=== PATIENT | female | born 1990 | race Caucasian/White ===

== ENCOUNTER 2018-05-21 18:05 | Emergency (ER) | payer OTHER ==
[2018-05-21] MEDS ORDERED: KETOROLAC 30 MG/ML INJ ONE (19:01)
[2018-05-21] MEDS ORDERED: HYDROCODONE/APAP 5/325 MG TAB ONE (19:01)
--- NOTE | 2018-05-21 19:40 | ER ---
Nurse's Notes [facility] Name: Liya Gutierrez Age: 28 yrs Sex: Female : 1990 Arrival Date: 05/21/2018 Time: 18:11 Bed 20 Private MD: None, None Diagnosis: Jaw pain-Left Presentation: 05/21 18:21 Presenting complaint: Patient states: Left lower jaw pain for 3 days. Transition of care: patient was not received from another setting of care. Onset of symptoms was May 18, 2018. Risk Assessment: Do you want to hurt yourself or someone else? Patient reports no desire to harm self or others. Initial Sepsis Screen: Does the patient meet any 2 criteria? No. Patient's initial sepsis screen is negative. Does the patient have a suspected source of infection? No. Patient's initial sepsis screen is negative. Care prior to arrival: None. 18:21 Method Of Arrival: Ambulatory aj 18:21 Acuity: LISSA 3 jd3 Triage Assessment: 18:23 General: Appears in no apparent distress. comfortable, Behavior is calm, cooperative, aj appropriate for age. Pain: Complains of pain in left cheek. EENT: Reports pain in left cheek. Neuro: Level of Consciousness is awake, alert, obeys commands, Oriented to person, place, time, situation, Appropriate for age. Respiratory: Airway is patent Respiratory effort is even, unlabored, Respiratory pattern is regular, symmetrical. Derm: Skin is intact, is healthy with good turgor, Skin is pink, warm \T\ dry. normal. 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 - Social history:: Smoking status: Patient uses tobacco products, smokes one-half pack cigarettes per day. - Ebola Screening: : Patient negative for fever greater than or equal to 101.5 degrees Fahrenheit, and additional compatible Ebola Virus Disease symptoms Patient denies exposure to infectious person Patient denies travel to an Ebola-affected area in the 21 days before illness onset No symptoms or risks identified at this time. Screenin:20 Abuse screen: Denies threats or abuse. Nutritional screening: No deficits noted. em Tuberculosis screening: No symptoms or risk factors identified. Fall Risk None identified. Assessment: 18:50 General: Appears in no apparent distress. uncomfortable, Behavior is calm, cooperative, em Denies fever. Pain: Complains of pain in left cheek Pain currently is 10 out of 10 on a pain scale. Neuro: Level of Consciousness is awake, alert, obeys commands, Oriented to person, place, time, situation. Cardiovascular: Capillary refill < 3 seconds Patient's skin is warm and dry. Respiratory: Airway is patent Respiratory effort is even, unlabored, Respiratory pattern is regular, symmetrical. GI: Abdomen is round non-distended, Patient currently denies nausea, vomiting. : No signs and/or symptoms were reported regarding the genitourinary system. EENT: Oral mucosa is moist. Throat is clear. Derm: Skin is intact, is healthy with good turgor, Skin is pink, warm \T\ dry. Musculoskeletal: Range of motion: intact in all extremities. 18:58 Reassessment: I agree with previous assessment. 19:20 Reassessment: Patient appears in no apparent distress at this time. No changes from jd3 previously documented assessment. Patient and/or family updated on plan of care and expected duration. Pain level reassessed. Patient is alert, oriented x 3, equal unlabored respirations, skin warm/dry/pink. awaiting disposition from provider. 19:48 Reassessment: Patient appears in no apparent distress at this time. No changes from jd3 previously documented assessment. Patient and/or family updated on plan of care and expected duration. Pain level reassessed. Patient is alert, oriented x 3, equal unlabored respirations, skin warm/dry/pink. Patient is alert/active/playful, equal unlabored respirations, skin warm/dry/pink. pt reported understanding of discharge instructions, even and steady gait upon discharge. Vital Signs: 18:23 BP 135 / 84; Pulse 82; Resp 16; Temp 98.5; Pulse Ox 100% on R/A; Weight 97.98 kg; aj Height 5 ft. 6 in. (167.64 cm); 19:49 Pulse 83; Resp 16 S; Pulse Ox 100% on R/A; jd3 18:23 Body Mass Index 34.86 (97.98 kg, 167.64 cm) ED Course: 18:11 Patient arrived in ED. mr 18:11 None, None is Private Physician. mr 18:22 Triage completed. aj 18:23 Arm band placed on left wrist. Patient placed in an exam room. aj 18:25 Tyshawn Zavala PA is PHCP. cp 18:25 Jerome Hoang MD is Attending Physician. cp 18:26 Cristian Iazguirre LVN is Primary Nurse. em 18:50 Patient has correct armband on for positive identification. Placed in gown. Bed in low em position. Adult w/ patient. 18:50 No provider procedures requiring assistance completed. Patient did not have IV access em during this emergency room visit. 19:38 Debbie Leonard MD is Referral Physician. cp Administered Medications: 19:00 Drug: TORadol 60 mg Route: IM; Site: left gluteus; em 19:50 Follow up: Response: No adverse reaction jd3 19:00 Drug: HYDROcodone-acetaminophen 5 mg-325 mg 1 tabs Route: PO; em 19:50 Follow up: Response: No adverse reaction jd3 Outcome: 19:39 Discharge ordered by MD. cp 19:47 Discharged to home ambulatory, with family. jd3 19:47 Condition: stable 19:47 Discharge instructions given to patient, family, Instructed on discharge instructions, follow up and referral plans. medication usage, Demonstrated understanding of instructions, follow-up care, medications. 19:57 Patient left the ED. jd3 Signatures: Selma Mccormack RN RN Genny Torres mr Cristian Izaguirre LVN DISTRICT LEADER em Tyhsawn Zavala PA PA cp Paula Osorio RN RN Jesse Yost RN RN jd3 Corrections: (The following items were deleted from the chart) 19:28 18:21 Acuity: LISSA 5 jd3
--- NOTE | 2018-05-21 19:40 | EDPHYS ---
Physician Documentation [facility] Name: Liya Gutierrez Age: 28 yrs Sex: Female : 1990 Arrival Date: 05/21/2018 Time: 18:11 Bed 20 Private MD: None, None ED Physician Jerome Hoang HPI: 05/21 18:35 This 28 yrs old Female presents to ER via Ambulatory with complaints of Jaw cp Pain. 18:35 Onset: The symptoms/episode began/occurred 3 day(s) ago. cp 18:35 Associated signs and symptoms: Pertinent negatives: chest pain, fever, sore throat, cp vomiting, sinus pressure, tooth pain. Modifying factors: the patient symptoms are aggravated by movement. 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 - Social history:: Smoking status: Patient uses tobacco products, smokes one-half pack cigarettes per day. - Ebola Screening: : Patient negative for fever greater than or equal to 101.5 degrees Fahrenheit, and additional compatible Ebola Virus Disease symptoms Patient denies exposure to infectious person Patient denies travel to an Ebola-affected area in the 21 days before illness onset No symptoms or risks identified at this time. ROS: 18:40 Constitutional: Negative for body aches, chills, fever, poor PO intake. cp 18:40 Eyes: Negative for discharge, pain, redness. cp 18:40 ENT: Positive for left jaw pain, Negative for drainage from ear(s), ear pain, sore throat, dental pain, difficulty swallowing, difficulty handling secretions. 18:40 Neck: Negative for pain with movement, pain at rest, stiffness, swollen nodes. 18:40 Cardiovascular: Negative for chest pain. 18:40 Respiratory: Negative for cough, shortness of breath, wheezing. 18:40 Abdomen/GI: Negative for nausea, vomiting, and diarrhea. 18:40 Skin: Negative for cellulitis, rash. 18:40 Neuro: Negative for headache, numbness, tingling, weakness. 18:40 All other systems are negative. Exam: 18:45 Constitutional: The patient appears in no acute distress, alert, awake, non-toxic, well cp developed, well nourished, uncomfortable. 18:45 Head/Face: Normocephalic, atraumatic. cp 18:45 Eyes: Periorbital structures: appear normal, Pupils: equal, round, and reactive to light and accomodation, Extraocular movements: intact throughout, Conjunctiva: normal, no exudate, no injection, Sclera: no appreciated abnormality, Lids and lashes: appear normal, bilaterally. 18:45 ENT: External ear(s): are unremarkable, Ear canal(s): are normal, clear, TM's: bulging, is not appreciated, bilaterally, dullness, bilaterally, erythema, is not appreciated, bilaterally, Nose: is normal, Mouth: Lips: moist, Oral mucosa: pink and intact, moist, Posterior pharynx: is normal, airway is patent, no erythema, no exudate, Dental exam: abscess, is not appreciated, dental caries, that is mild, diffusely, pain, that is moderate, specifically in the left jaw, Voice: is normal. 18:45 Neck: ROM/movement: is normal, is supple, without pain, no range of motions limitations, no meningismus, no nuchal rigidity, Lymph nodes: no appreciated lymphadenopathy. 18:45 Chest/axilla: Inspection: normal, Palpation: is normal, no crepitus, no tenderness. 18:45 Cardiovascular: Rate: normal, Rhythm: regular. 18:45 Respiratory: the patient does not display signs of respiratory distress, Respirations: normal, no use of accessory muscles, no retractions, no splinting, no tachypnea, Breath sounds: are clear throughout, no decreased breath sounds, no stridor, no wheezing. 18:45 Abdomen/GI: Exam negative for discomfort, distension, guarding, Inspection: abdomen appears normal. 18:45 Skin: cellulitis, is not appreciated, no rash present. 18:45 Neuro: Orientation: to person, place \T\ time. Mentation: is normal, Cerebellar function: is grossly normal, Motor: moves all fours, strength is normal, Sensation: is normal. Vital Signs: 18:23 BP 135 / 84; Pulse 82; Resp 16; Temp 98.5; Pulse Ox 100% on R/A; Weight 97.98 kg; aj Height 5 ft. 6 in. (167.64 cm); 19:49 Pulse 83; Resp 16 S; Pulse Ox 100% on R/A; jd3 18:23 Body Mass Index 34.86 (97.98 kg, 167.64 cm) aj MDM: 18:25 Patient medically screened. cp 18:35 Differential diagnosis: sinusitis, otitis media, TMJ pain, neuralgia, dental abscess. cp 19:35 Data reviewed: vital signs, nurses notes, and as a result, I will discharge patient. cp 19:35 Response to treatment: the patient's symptoms have markedly improved after treatment. cp 05/21 19:08 Order name: Urine Dipstick--Ancillary (enter results) ms 05/21 19:08 Order name: Urine --Ancillary (enter results) ms 05/21 18:34 Order name: Urine Test (obtain specimen); Complete Time: 19:00 cp Administered Medications: 19:00 Drug: TORadol 60 mg Route: IM; Site: left gluteus; em 19:50 Follow up: Response: No adverse reaction jd3 19:00 Drug: HYDROcodone-acetaminophen 5 mg-325 mg 1 tabs Route: PO; em 19:50 Follow up: Response: No adverse reaction jd3 Disposition: 20:00 Chart complete. cp Disposition: 05/21/18 19:39 Discharged to Home. Impression: Jaw pain - Left . - Condition is Stable. - Discharge Instructions: Temporomandibular Joint Syndrome, Jaw Range of Motion Exercises. - Prescriptions for Anaprox DS 550 mg Oral Tablet - take 1 tablet by ORAL route every 12 hours As needed; 20 tablet. Ultram 50 mg Oral Tablet - take 1 tablet by ORAL route every 6 hours As needed; 15 tablet. - Medication Reconciliation Form, Thank You Letter, Antibiotic Education, Prescription Opioid Use form. - Follow up: Debbie Leonard MD; When: 2 - 3 days; Reason: Recheck today's complaints. - Problem is new. - Symptoms have improved. Signatures: Dispatcher [employer] Selma Anderson RN RN Cristian Huntley, FUNERAL SERVICE LICENSEE FUNERAL SERVICE LICENSEE em Tyshawn Zavala PA PA cp Davies, Jonathon RN RN jd3 Corrections: (The following items were deleted from the chart) 19:57 19:39 05/21/2018 19:39 Discharged to Home. Impression: Jaw pain - Left . Condition is jd3 Stable. Forms are Medication Reconciliation Form, Thank You Letter, Antibiotic Education, Prescription Opioid Use. Follow up: Debbie Leonard; When: 2 - 3 days; Reason: Recheck today's complaints. Problem is new. Symptoms have improved. cp
[2018-05-21 20:03] VITALS: BP 135/84; TEMP 98.5; O2SAT 100
[2018-05-21 21:26] LABS: Urine Blood TRACE (NEG); Urine Glucose NEGATIVE (NEG); Urine Protein NEGATIVE (NEG); Urine pH 6.5 (5.0-7.0)
== END 2018-05-21 19:57 | disposition home or self-care (01) ==
LOC: ER 18:05
DX: R68.84 Jaw pain (principal); F17.210 Nicotine dependence, cigarettes, uncomplicated
CPT/HCPCS: 81003; 81025; 96372; 99283

== ENCOUNTER 2018-12-15 13:25 | Emergency (ER) | payer OTHER, SELFPAY ==
--- NOTE | 2018-12-15 14:21 | EDPHYS ---
Physician Documentation [facility] Name: Liya Gutierrez Age: 28 yrs Sex: Female : 1990 Arrival Date: 12/15/2018 Time: 13:30 Bed 12 Private MD: None, None ED Physician Zbigniew De La Garza HPI: 12/15 14:19 This 28 yrs old Female presents to ER via Ambulatory with complaints of pm1 Bilateral Ear Pain. 14:19 The patient presents with pain. The complaints affect the right ear and left ear. pm1 Onset: The symptoms/episode began/occurred 3 day(s) ago. Modifying factors: The symptoms are alleviated by nothing, the symptoms are aggravated by touching. Associated signs and symptoms: Pertinent negatives: fever, sore throat. Severity of symptoms: in the emergency department the symptoms are worse. The patient has experienced similar episodes in the past, a few times. The patient has not recently seen a physician. left ear worse than right ear. 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 - Social history:: Smoking status: Patient uses tobacco products, smokes one-half pack cigarettes per day. - Ebola Screening: : Patient denies exposure to infectious person Patient denies travel to an Ebola-affected area in the 21 days before illness onset. ROS: 14:19 Constitutional: Negative for fever, chills, and weight loss, Eyes: Negative for injury, pm1 pain, redness, and discharge. 14:19 Neck: Negative for injury, pain, and swelling, Cardiovascular: Negative for chest pain, palpitations, and edema, Respiratory: Negative for shortness of breath, cough, wheezing, and pleuritic chest pain, Abdomen/GI: Negative for abdominal pain, nausea, vomiting, diarrhea, and constipation, Back: Negative for injury and pain, MS/Extremity: Negative for injury and deformity, Skin: Negative for injury, rash, and discoloration, Neuro: Negative for headache, weakness, numbness, tingling, and seizure. 14:19 ENT: Positive for ear pain, Negative for drainage from ear(s). Exam: 14:19 Constitutional: This is a well developed, well nourished patient who is awake, alert, pm1 and in no acute distress. Head/Face: Normocephalic, atraumatic. Eyes: Pupils equal round and reactive to light, extra-ocular motions intact. Lids and lashes normal. Conjunctiva and sclera are non-icteric and not injected. Cornea within normal limits. Periorbital areas with no swelling, redness, or edema. 14:19 Neck: Trachea midline, no thyromegaly or masses palpated, and no cervical lymphadenopathy. Supple, full range of motion without nuchal rigidity, or vertebral point tenderness. No Meningismus. Chest/axilla: Normal chest wall appearance and motion. Nontender with no deformity. No lesions are appreciated. Cardiovascular: Regular rate and rhythm with a normal S1 and S2. No gallops, murmurs, or rubs. Normal PMI, no JVD. No pulse deficits. Respiratory: Lungs have equal breath sounds bilaterally, clear to auscultation and percussion. No rales, rhonchi or wheezes noted. No increased work of breathing, no retractions or nasal flaring. Abdomen/GI: Soft, non-tender, with normal bowel sounds. No distension or tympany. No guarding or rebound. No evidence of tenderness throughout. Back: No spinal tenderness. No costovertebral tenderness. Full range of motion. Skin: Warm, dry with normal turgor. Normal color with no rashes, no lesions, and no evidence of cellulitis. MS/ Extremity: Pulses equal, no cyanosis. Neurovascular intact. Full, normal range of motion. 14:19 ENT: External ear(s): are unremarkable, Ear canal(s): swelling, that is moderate, of the left canal, Right ear mild swelling, TM's: unable to visualize left TM, right TM normal, Nose: is normal, Mouth: is normal, Posterior pharynx: is normal. 14:19 Neuro: Orientation: is normal, Motor: is normal, moves all fours, Gait: is steady, at a normal pace, without difficulty. Vital Signs: 13:39 BP 126 / 80; Pulse 90; Resp 14; Temp 97.9(O); Pulse Ox 98% on R/A; Height 5 ft. 4 in. ss (162.56 cm); Pain 8/10; MDM: 14:17 Patient medically screened. pm1 14:19 Data reviewed: vital signs. Data interpreted: Pulse oximetry: on room air is 98 %. pm1 Interpretation: normal. Counseling: I had a detailed discussion with the patient and/or guardian regarding: the historical points, exam findings, and any diagnostic results supporting the discharge/admit diagnosis, the need for outpatient follow up, to return to the emergency department if symptoms worsen or persist or if there are any questions or concerns that arise at home. 14:19 ED course: Earwick placed in left ear canal. Unable to visualize left TM therefore will pm1 prescribe amoxicillin PO for possible AOM. Administered Medications: 14:26 Drug: [place] 5 mg-325 mg 1 tabs Route: PO; ss 14:27 Follow up: Response: Medication administered at discharge. Disposition: 15:13 Co-signature as Attending Physician, Zbigniew De La Garza MD. rn Disposition: 12/15/18 14:20 Discharged to Home. Impression: Other otitis externa, bilateral. - Condition is Stable. - Discharge Instructions: Ear Drops, Adult, Otitis Externa. - Prescriptions for Cortisporin 3.5- 10,000-1 mg/mL-unit/mL-% Otic solution - instill 4 drop by OTIC route every 6 hours for 10 days; 1 bottle. Amoxicillin 500 mg Oral Capsule - take 1 capsule by ORAL route every 8 hours for 10 days; 30 tablet. Tylenol- Codeine #3 300-30 mg Oral Tablet - take 2 tablets by ORAL route every 6 hours As needed; 20 tablet. - Work release form, Medication Reconciliation Form, Thank You Letter, Antibiotic Education, Prescription Opioid Use form. - Follow up: Emergency Department; When: As needed; Reason: Worsening of condition. Follow up: Private Physician; When: 2 - 3 days; Reason: Recheck today's complaints, Continuance of care, Re-evaluation by your physician. - Problem is new. - Symptoms have improved. Signatures: Zbigniew De La Garza MD MD rn Smirch, Shelby, RN RN ss Seamus Feldman, TECHNICAL ADMINISTRATOR TECHNICAL ADMINISTRATOR pm1 Corrections: (The following items were deleted from the chart) 14:36 14:20 12/15/2018 14:20 Discharged to Home. Impression: Other otitis externa, bilateral. ss Condition is Stable. Forms are Medication Reconciliation Form, Thank You Letter, Antibiotic Education, Prescription Opioid Use. Follow up: Emergency Department; When: As needed; Reason: Worsening of condition. Follow up: Private Physician; When: 2 - 3 days; Reason: Recheck today's complaints, Continuance of care, Re-evaluation by your physician. Problem is new. Symptoms have improved. pm1
--- NOTE | 2018-12-15 14:21 | ER ---
Nurse's Notes [facility] Name: Liya Gutierrez Age: 28 yrs Sex: Female : 1990 Arrival Date: 12/15/2018 Time: 13:30 Bed 12 Private MD: None, None Diagnosis: Other otitis externa, bilateral Presentation: 12/15 13:37 Presenting complaint: Patient states: Bilateral ear pain and muffled hearing x 4 days. ss Transition of care: patient was not received from another setting of care. Onset of symptoms was December 11, 2018. Risk Assessment: Do you want to hurt yourself or someone else? Patient reports no desire to harm self or others. Initial Sepsis Screen: Does the patient meet any 2 criteria? No. Patient's initial sepsis screen is negative. Does the patient have a suspected source of infection? No. Patient's initial sepsis screen is negative. Care prior to arrival: None. 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 - Social history:: Smoking status: Patient uses tobacco products, smokes one-half pack cigarettes per day. - Ebola Screening: : Patient denies exposure to infectious person Patient denies travel to an Ebola-affected area in the 21 days before illness onset. Screenin:47 Abuse screen: Denies threats or abuse. Denies injuries from another. Nutritional ss screening: No deficits noted. Tuberculosis screening: Never had TB. Fall Risk None identified. Assessment: 13:47 General: Appears uncomfortable, Behavior is cooperative, anxious, restless. Pain: ss Complains of pain in left ear and right ear Pain currently is 8 out of 10 on a pain scale. Quality of pain is described as aching. Neuro: Level of Consciousness is awake, alert, obeys commands. Cardiovascular: Capillary refill < 3 seconds is brisk in bilateral fingers. Respiratory: Airway is patent Respiratory effort is even, unlabored, Respiratory pattern is regular, symmetrical. GI: Patient currently denies nausea. EENT: Ear canal swelling noted to L ear canal, pt reports decreased hearing to affected ear. Oral mucosa is moist. Derm: Skin is intact, is healthy with good turgor, Skin is pink, warm \T\ dry. normal. Musculoskeletal: Circulation, motion, and sensation intact. Range of motion: intact in all extremities. Vital Signs: 13:39 BP 126 / 80; Pulse 90; Resp 14; Temp 97.9(O); Pulse Ox 98% on R/A; Height 5 ft. 4 in. ss (162.56 cm); Pain 8/10; ED Course: 13:30 Patient arrived in ED. mr 13:30 None, None is Private Physician. mr 13:38 Triage completed. ss 13:39 Arm band placed on right wrist. ss 13:47 Patient has correct armband on for positive identification. Bed in low position. Call ss light in reach. 14:17 Seamus Feldman NP [facility]. pm1 14:17 Zbigniew De La Garza MD is Attending Physician. pm1 14:26 Alice Mckeon RN is Primary Nurse. ss 14:35 No provider procedures requiring assistance completed. Patient did not have IV access ss during this emergency room visit. Administered Medications: 14:26 Drug: [place] 5 mg-325 mg 1 tabs Route: PO; ss 14:27 Follow up: Response: Medication administered at discharge. ss Outcome: 14:20 Discharge ordered by . pm1 14:35 Discharged to home ambulatory. ss 14:35 Condition: good 14:35 Discharge instructions given to patient, family, Instructed on discharge instructions, follow up and referral plans. medication usage, Demonstrated understanding of instructions, follow-up care, medications, Prescriptions given X 3. 14:36 Patient left the ED. ss Signatures: Genny Chapman mr Alice Mckeon RN RN Seamus Feldman NP PSYCHOTHERAPIST pm1
[2018-12-15] MEDS ORDERED: HYDROCODONE/APAP 5/325 MG TAB ONE (14:40)
[2018-12-15 15:11] VITALS: BP 126/80; TEMP 97.9; O2SAT 98
== END 2018-12-15 14:36 | disposition home or self-care (01) ==
LOC: ER 13:25
DX: H60.93 Unspecified otitis externa, bilateral (principal); F17.210 Nicotine dependence, cigarettes, uncomplicated; Z88.2 Allergy status to sulfonamides
CPT/HCPCS: 99283

== ENCOUNTER 2024-01-05 15:20 | Emergency (ER) | payer SELFPAY ==
--- NOTE | 2024-01-05 16:36 | RAD REPORT ---
EXAM DESCRIPTION: RAD - Knee Left 3 View - 01/05/2024 4:14 pm CLINICAL HISTORY: Left knee pain FINDINGS: No fracture or dislocation is seen. Minimal narrowing medial compartment 3.5 centimeter sclerosis distal left femur may represent an infarct or enchondroma. It is recommended that the patient have a follow up x-ray in 3 months to assess stability
--- NOTE | 2024-01-05 16:55 | ER ---
Nurse's Notes [facility] Name: Liya Gutierrez Age: 33 yrs Sex: Female : 1990 Arrival Date: 01/05/2024 Time: 15:20 Bed DX3 Private MD: Diagnosis: Contusion of left knee Presentation: 01/04 15:26 Chief complaint: Patient states: Tripped on Tuesday chasing her daughter. L knee pain, ll1 swelling, bruising noted since. Coronavirus screen: Client denies travel out of the [place] in the last 14 days. At this time, the client does not indicate any symptoms associated with coronavirus-19. Ebola Screen: Patient denies travel to an Ebola-affected area in the 21 days before illness onset. Initial Sepsis Screen: Does the patient meet any 2 criteria? No. Patient's initial sepsis screen is negative. Does the patient have a suspected source of infection? No. Patient's initial sepsis screen is negative. Risk Assessment: Do you want to hurt yourself or someone else? Patient reports no desire to harm self or others. Onset of symptoms was December 30, 2023. 15:26 Method Of Arrival: Ambulatory ll1 15:26 Acuity: LISSA 4 ll1 Triage Assessment: 15:26 General: Appears uncomfortable, Behavior is calm, cooperative, appropriate for age. ll1 Pain: Complains of pain in left knee Quality of pain is described as aching, throbbing. Musculoskeletal: Circulation, motion, and sensation intact. Capillary refill < 3 seconds, Reports pain in left knee. Injury Description: Bruise s/p fall. Historical: - Allergies: 15:26 Sulfa (Sulfonamide Antibiotics); ll1 - PMHx: 15:26 None; ll1 - PSHx: 15:26 Cholecystectomy; section; ectopic ; ll1 - Immunization history:: Adult Immunizations up to date. - Infectious Disease History:: Denies. - Social history:: Smoking status: Reported history of juuling and/or vaping. Patient denies any tobacco usage or history of. Screenin:05 [facility] ED Fall Risk Assessment (Adult) History of falling in the last 3 months, kb3 including since admission Yes- single mechanical fall (1 pt) Confusion or Disorientation No (0 pts) Intoxicated or Sedated No (0 pts) Impaired Gait No (0 pts) Mobility Assist Device Used No (0 pt) Altered Elimination No (0 pt) Score/Fall Risk Level 0 - 2 = Low Risk Oriented to surroundings. Abuse screen: Denies threats or abuse. Denies injuries from another. Nutritional screening: No deficits noted. Tuberculosis screening: No symptoms or risk factors identified. Assessment: 17:05 General: Appears in no apparent distress. Behavior is calm, cooperative. kb3 17:05 Injury Description: Bruise sustained to left knee and left luong. kb3 Vital Signs: 15:26 BP 130 / 76; Pulse 87; Resp 16; Temp 97.8; Pulse Ox 99% ; Weight 89.81 kg; Height 5 ft. ll1 5 in. ; Pain 8/10; 17:32 BP 131 / 71; Pulse 78; Resp 18; Temp 97.3; Pulse Ox 100% ; Pain 5/10; kb3 15:26 Body Mass Index 32.95 (89.81 kg, 165.1 cm) ll1 15:26 Pain Scale: Adult ll1 17:32 Pain Scale: Adult kb3 ED Course: 15:22 Patient arrived in ED. mr 15:23 Guerreor Le MD is Attending Physician. rt 15:26 Arm band placed on. ll1 15:27 [facility] Villeda FNP-C [facility]. kb 15:28 Triage completed. ll1 16:16 Knee Left 3 View XRAY In Process Unspecified. EDMS 17:05 Patient has correct armband on for positive identification. Provided Education on: Plan kb3 of care, discharge, RICE for left knee bruise/injury. 17:05 No provider procedures requiring assistance completed. Patient did not have IV access kb3 during this emergency room visit. Administered Medications: 17:29 Drug: HYDROcodone-acetaminophen PO 5 mg-325 mg 1 tabs PO once Route: PO; kb3 17:30 Follow up: Response: No adverse reaction kb3 17:29 Drug: Ibuprofen PO 800 mg PO once Route: PO; kb3 17:29 Follow up: Response: No adverse reaction kb3 Medication: 17:05 VIS not applicable for this client. kb3 Outcome: 16:54 Discharge ordered by . kb 17:30 Discharged to home ambulatory, kb3 17:30 Condition: stable kb3 17:30 Discharge instructions given to patient, Instructed on discharge instructions, follow up and referral plans. medication usage, Demonstrated understanding of instructions, follow-up care, medications, Prescriptions given X 1, 17:33 Patient left the ED. kb3 Signatures: Dispatcher [employer] EDMS Laura Villeda, STU-Erasmo SKATE HOP-Genny Snow, Reg Reg mr Tang Sethi, WENDY RN ll1 Kiesha Silva RN RN kb3 Guerrero Le MD MD rt
--- NOTE | 2024-01-05 16:55 | EDPHYS ---
Physician Documentation [facility] Name: Liya Gutierrez Age: 33 yrs Sex: Female : 1990 Arrival Date: 01/05/2024 Time: 15:20 Bed DX3 Private MD: ED Physician Guerrero Le HPI: 01/04 16:05 This 33 yrs old Female presents to ER via Ambulatory with complaints of Knee Injury. kb 16:05 Pt is a 33 year old female who presents for left knee pain, swelling and bruising. kb States she was chasing after her daughter one week ago and fell directly onto left knee. Reports swelling has gotten better, but pain has gotten worse. Unable to pivot, but able to ambulate. Denies any other injuries. . Historical: - Allergies: 15:26 Sulfa (Sulfonamide Antibiotics); ll1 - PMHx: 15:26 None; ll1 - PSHx: 15:26 Cholecystectomy; section; ectopic ; ll1 - Immunization history:: Adult Immunizations up to date. - Infectious Disease History:: Denies. - Social history:: Smoking status: Reported history of juuling and/or vaping. Patient denies any tobacco usage or history of. ROS: 16:06 Constitutional: As per HPI kb Exam: 16:06 Constitutional: This is a well developed, well nourished patient who is awake, alert, kb and in no acute distress. Head/Face: Normocephalic, atraumatic. ENT: Moist Mucous membranes Cardiovascular: Regular rate Respiratory: Respirations even and unlabored. No increased work of breathing. Talking in full sentences Abdomen/GI: Soft, non-tender. No distention Skin: Warm, dry with normal turgor. Normal color. Neuro: Awake and alert, GCS 15, oriented to person, place, time, and situation. Moves all extremities. Normal gait. 16:06 Musculoskeletal/extremity: Extremities: grossly normal except: noted in the left knee: contusion, ecchymosis, pain, swelling, tenderness, ROM: intact in all extremities, Circulation is intact in all extremities. Sensation intact. Weight bearing: able to fully bear weight, Vital Signs: 15:26 BP 130 / 76; Pulse 87; Resp 16; Temp 97.8; Pulse Ox 99% ; Weight 89.81 kg; Height 5 ft. ll1 5 in. ; Pain 8/10; 17:32 BP 131 / 71; Pulse 78; Resp 18; Temp 97.3; Pulse Ox 100% ; Pain 5/10; kb3 15:26 Body Mass Index 32.95 (89.81 kg, 165.1 cm) ll1 15:26 Pain Scale: Adult ll1 17:32 Pain Scale: Adult kb3 MDM: 15:27 Patient medically screened. kb 16:07 Differential diagnosis: contusion, fracture, sprain, strain. Data reviewed: vital kb signs, nurses notes. 16:38 Counseling: I had a detailed discussion with the patient and/or guardian regarding the kb historical points, exam findings, and any diagnostic results supporting the discharge/admit diagnosis, radiology results, the need for outpatient follow up, a family practitioner, to return to the emergency department if symptoms worsen or persist or if there are any questions or concerns that arise at home. Special discussion: I discussed with the patient the need to follow-up with the PCP/specialist for the noted incidental finding on X-ray/CT scanning. 01/04 15:30 Order name: Knee Left 3 View XRAY; Complete Time: 16:37 kb 01/04 16:37 Order name: Ready for Discharge- Return to ED; Complete Time: 17:00 kb 01/04 16:53 Order name: Prabhakar Wrap; Complete Time: 17:16 kb Administered Medications: 17:29 Drug: HYDROcodone-acetaminophen PO 5 mg-325 mg 1 tabs PO once Route: PO; kb3 17:30 Follow up: Response: No adverse reaction kb3 17:29 Drug: Ibuprofen PO 800 mg PO once Route: PO; kb3 17:29 Follow up: Response: No adverse reaction kb3 Disposition: 19:00 Co-signature as Attending Physician, Guerrero Le MD I reviewed the patient's care rt provided by the Advanced Practice Provider and agree with the diagnosis and treatment plan. Disposition Summary: 01/05/24 16:54 Discharge Ordered Notes: Location: Home kb Condition: Stable kb Diagnosis - Contusion of left knee kb Followup: kb - With: Emergency Department - When: As needed - Reason: Worsening of condition Followup: kb - With: Private Physician - When: 2 - 3 days - Reason: Recheck today's complaints, Continuance of care, Re-evaluation by your physician Discharge Instructions: - Discharge Summary Sheet kb - Contusion, [id number] kb Forms: - Medication Reconciliation Form kb - Antibiotic Education kb - Prescription Opioid Use kb - Patient Portal Instructions kb - Leadership Thank You Letter kb Prescriptions: - Diclofenac Sodium 75 mg Oral tablet, delayed release (enteric coated) - take 1 tablet ORAL route 2 times per day As needed; 30 tablet; Refills: 0, kb Product Selection Permitted Signatures: Dispatcher [employer] EDLaura Wylie, SOCIAL SERVICE WORKER-C SOCIAL SERVICE WORKER-Tang Gaitan RN RN ll1 Kiesha Silva RN RN kb3 Guerrero Le MD MD rt
[2024-01-05] MEDS ORDERED: IBUPROFEN 400 MG TAB ONE (17:01)
[2024-01-05] MEDS ORDERED: HYDROCODONE/APAP 5/325 MG TAB ONE (17:01)
[2024-01-05 17:53] VITALS: BP 131/71; TEMP 97.3; O2SAT 100
== END 2024-01-05 17:33 | disposition home or self-care (01) ==
LOC: ER 15:20
DX: S80.02XA Contusion of left knee, initial encounter (principal); Z87.891 Personal history of nicotine dependence; Z88.2 Allergy status to sulfonamides
CPT/HCPCS: 99283